=== PATIENT | male | born 1965 | race Caucasian/White ===

== ENCOUNTER 2020-06-02 17:27 | Outpatient (CLI) | payer BC, SELFPAY | END 2020-06-02 17:28 | disposition home or self-care (01) | LOC: ANHCOVIDVC 17:27 | PROVIDERS: PCP Family Medicine | DX: Z23 Encounter for immunization (principal) | CPT/HCPCS: 0001A; 91300 ==

== ENCOUNTER 2020-06-23 17:44 | Outpatient (CLI) | payer BC, SELFPAY | END 2020-06-23 17:45 | disposition home or self-care (01) | LOC: ANHCOVIDVC 17:44 | PROVIDERS: PCP Family Medicine | DX: Z23 Encounter for immunization (principal) | CPT/HCPCS: 0002A; 91300 ==

== ENCOUNTER 2021-06-15 14:38 | Outpatient (CLI) | payer BC, SELFPAY ==
--- NOTE | ~2021-06-15 | PE_ITS ---
EXAMINATION: PET_PETPSMAST_PT DATE: 06/15/2021 17:03 INDICATION: Malignant neoplasm of the prostate TECHNIQUE: 10.51 mCi of pipflufolastat F-18 (18-F-DCFPyL) was administered i.v. Low dose computed silva ography (CT) images were acquired from the base of the brain to the proximal thighs for attenuation c orrection and anatomic localization. Positron emission tomography (PET) images were acquired in the s rosie distribution beginning 86 minutes after injection. COMPARISON: None FINDINGS: Head/neck: Typical pattern of symmetric physiologic increased activity in the lacrimal, parotid and s ubmandibular glands as well as along the mucosa of the oropharynx and nasopharynx. No pathologically enlarged cervical lymphadenopathy or suspicious foci of increased uptake in the visualized head or ne ck. Chest: Mild emphysema. Linear band of discoid atelectasis/scarring in the left lower lobe. Calcified left lo wer lobe nodule along with calcified left hilar lymph nodes consistent with old granulomatous disease . No other suspicious pulmonary nodules, pneumonia or pleural effusion. Heart size is normal. No jurgen cardial effusion. No pathologically enlarged thoracic or PSMA avid lymphadenopathy. Abdomen/pelvis/proximal thighs: Physiologic renal accumulation and excretion of activity in the kidneys, bladder and along portions o f ureters. Normal degree and slightly heterogenous pattern of increased uptake throughout the liver a nd spleen without radiologic correlate or dominant PSMA avid lesion. The gallbladder, pancreas and bi lateral adrenal glands are normal. Moderate uptake scattered throughout the bowels with typical duode nal and proximal jejunal predominance and without radiologic correlate, also likely physiologic. No o ther abnormal foci of increased uptake or pathologically enlarged lymphadenopathy in the abdomen, pel vis or proximal thighs. Musculoskeletal: 1.5 cm peripherally sclerotic lesion at the left sacral ala with negligible activity with maximal SUV of 1.1 which is below the level of the blood pool seen at the vessels at the bilateral inguinal jamie ons where the maximal SUV is 1.4. Suture anchor tracts at the right humeral head likely related to pr ior rotator cuff repair. No other suspicious bone lesions identified. Specifically no abnormal activi ty or suspicious lytic or blastic bone lesions at the left acromion. IMPRESSION: 1. No evident metastatic disease. Specifically no abnormally increased activity at an indeterminate p eripherally sclerotic lesion at the left sacral ala. Reviewed, dictated and finalized at location B. IMPRESSION: 1. No evident metastatic disease. Specifically no abnormally increased activity at an indeterminate peripherally sclerotic lesion at the left sacral ala.
== END 2021-06-15 14:39 | disposition home or self-care (01) ==
PROVIDERS: PCP Family Medicine; Visit Provider Radiology Radiation Oncology
DX: Z03.89 Encounter for observation for other suspected diseases and conditions ruled out (principal); C61 Malignant neoplasm of prostate
CPT/HCPCS: 78815; A9595

== ENCOUNTER 2021-09-03 10:42 | Outpatient (CLI) | payer BC, SELFPAY ==
--- NOTE | ~2021-09-03 | MR_ITS ---
EXAMINATION: MR pelvis wo/w con DATE: 09/03/2021 12:20 INDICATION: Prostate cancer. TECHNIQUE: Magnetic resonance imaging (MRI) of the pelvis was performed without and with 19 mL MultiH ance intravenous contrast. COMPARISON: PET CT 06/15/2021 FINDINGS: There is diverticulosis of the colon without evidence of diverticulitis. The prostate is mildly enlar ged. There is a 3.8 x 1.3 cm fluid collection between the rectum and prostate, likely hematoma. There are no pathologically enlarged lymph nodes. IMPRESSION: 1. Mildly enlarged prostate. No evidence of metastatic disease. Reviewed, dictated and finalized at location A.
[2021-09-03 11:11] LABS: Estimated Glomerular Filt Rate > 60
== END 2021-09-03 10:43 | disposition home or self-care (01) ==
PROVIDERS: PCP Family Medicine; Visit Provider Radiology Radiation Oncology
DX: C61 Malignant neoplasm of prostate (principal); N40.0 Benign prostatic hyperplasia without lower urinary tract symptoms
CPT/HCPCS: 72197; A9577

== ENCOUNTER 2021-09-28 12:52 | Outpatient (CLI) | payer BC, SELFPAY ==
--- NOTE | ~2021-09-28 | DEXA_ITS ---
Bone Density Report Name: JOE GARCIA Age: 56 Sex: Male Ethnicity: White Date of : 1965 Indication: cancer; secondary osteoporosis; Referring Provider: RACHELL RODRIGUEZ Study: Bone densitometry was performed. Exam Date: September 28, 2021 Accession number: [id number] Bone Density: Region BMD T-score Z-score Classification AP Spine(L1-L4) 1.008 -0.8 -0.2 Normal Femoral Neck (Left) 0.764 -1.2 -0.3 Osteopenia Total Hip (Left) 0.935 -0.6 -0.2 Normal Femoral Neck (Right) 0.777 -1.1 -0.2 Osteopenia Total Hip (Right) 0.957 -0.5 -0.1 Normal Total Hip Mean 0.946 -0.6 -0.2 Normal World Health Organization criteria for BMD impression classify patients as: Normal (T-score at or above -1.0), Osteopenia (T-score between -1.0 and -2.5), or Osteoporosis (T-score at or below -2.5). 10-year Fracture Risk(1): Major Osteoporotic Fracture 5.1% Hip Fracture 0.4% Reported Risk Factors: [place] (), Neck BMD=0.764, BMI=28.7, secondary osteoporosis (1) FRAX(R) Version 3.08. Fracture probability calculated for an untreated patient. Fracture probability may be lower if the patient has received treatment. Clinical Information Provided by Patient: Has secondary osteoporosis Has used the following medications: Vitamin D, Calcium Has the following medical conditions: Cancer, prostate Patient maximum height was 71 No regular weight bearing exercise Impression: The patient has low bone mass, based on the Left Femoral Neck T-score. The patient has an estimated ten-year risk of hip fracture of 0.4% and an estimated ten-year risk of major fracture of 5.1%, based on the WHO FRAX algorithm. Discussion: BONE DENSITY IS LOW AT ONE OR MORE SKELETAL SITES. This patient's lowest T-score is low at one or more skeletal sites. It meets the World Health Organization's (WHO) criteria for ?low bone mass? (T-score between -1.0 and -2.5). The patient's 10-year risk of fracture as calculated by FRAX is less than the threshold where pharmacological therapy is recommended by the National Osteoporosis Foundation (NOF). However, all treatment decisions require clinical judgment and consideration of individual patient factors, including patient preferences, comorbidities, previous drug use, risk factors not captured in the FRAX model (e.g., frailty, falls, vitamin D deficiency, increased bone turnover, interval significant decline in bone density) and possible under or overestimation of fracture risk by FRAX. The patient should follow a healthful lifestyle (good nutrition with adequate calcium and vitamin D, and appropriate weight-bearing exercise). Follow-Up: Consider repeating this study in 2 to 3 years to reassess this patient's status, or sooner if there is some new clinical indication. Reported by: [facility] on
== END 2021-09-28 12:53 | disposition home or self-care (01) ==
PROVIDERS: PCP Family Medicine; Visit Provider Nurse Practitioner
DX: M81.8 Other osteoporosis without current pathological fracture (principal); M85.852 Other specified disorders of bone density and structure, left thigh; M85.851 Other specified disorders of bone density and structure, right thigh
CPT/HCPCS: 77080

== ENCOUNTER 2022-08-16 08:32 | Outpatient (CLI) | payer BC, SELFPAY ==
--- NOTE | ~2022-08-16 | NM_ITS ---
EXAMINATION: NM bone scan whole body DATE: 08/16/2022 13:05 INDICATION: Prostate cancer TECHNIQUE: 24.2 mCi Tc-99m HDP was administered intravenously. Delayed whole-body scintigrams were o btained. COMPARISON: CT abdomen pelvis dated FINDINGS: Likely degenerative joint centered uptake at the right acromioclavicular joint and multiple joints at the bilateral hands and wrists. Significantly more intense focus projecting over the tips of the fin gers of the left hand were likely related to skin contamination as is a tiny relatively intense focus projecting over the soft tissues at the left antecubital fossa. No bone lesions suspicious for metas tatic disease. IMPRESSION: 1. No lesion suspicious for metastatic disease. Reviewed, dictated and finalized at location A.
--- NOTE | ~2022-08-16 | CT_ITS ---
EXAMINATION: CT abdomen pelvis w con INDICATION: Prostate cancer TECHNIQUE: Computed tomographic images of the abdomen and pelvis were obtained after the administrati on of 100 cc of Omnipaque 350 intravenous contrast. The dose-length product (DLP) was 1140.18 mGy-cm. Automated exposure control and iterative reconstruction technique were employed. COMPARISON: 06/15/2021; MRI, 09/03/2021 FINDINGS: The lung bases are clear. The heart size is normal. Punctate calcifications in an otherwise normal spleen likely represent healed granulomatous disease. The liver, pancreas, gallbladder, and a drenal glands are normal. The kidneys are unremarkable. No pathologically enlarged abdominal or pelvi c lymph nodes are identified. Colonic diverticulosis is present without evidence of diverticulitis. N o free intraperitoneal gas or evidence of bowel obstruction. The appendix is normal. Again seen is a stable, chronic peripherally sclerotic lesion of the left sacroiliac which did not demonstrate abnorm al uptake on prior PET/CT. IMPRESSION: 1. No evidence of metastatic disease. Reviewed, dictated and finalized at location L.
[2022-08-16 09:22] LABS: Estimated Glomerular Filt Rate > 60
== END 2022-08-16 08:33 | disposition home or self-care (01) ==
PROVIDERS: PCP Family Medicine; Referring Provider Radiology Radiation Oncology; Visit Provider Urology
DX: C61 Malignant neoplasm of prostate (principal)
CPT/HCPCS: 74177; 78306; A9503; Q9967

== ENCOUNTER 2023-09-06 08:42 | Outpatient (CLI) | payer BC, SELFPAY ==
--- NOTE | ~2023-09-06 | CT_ITS ---
CT of the Abdomen and Pelvis: Indication: Prostate cancer Technique: 2.5 mm axial scans were obtained through the abdomen and pelvis following intravenous adm inistration of 100 cc of Omnipaque 350. Dose reduction technique was used on this scan by utilizing a utomated exposure control and iterative reconstruction technique. The dose-length product (DLP) was 1 031.47 mGy-cm. COMPARISON: 08/16/2022 Findings: Scans through the lung bases are unremarkable. Stable 9 mm enhancing lesion in the left hepatic lobe, possibly flash filling hemangioma. The spleen, pancreas, gallbladder, adrenals and kidneys are within normal limits. No evidence of aortic aneurys m. No lymphadenopathy. No bowel obstruction or bowel wall thickening. There is no evidence to suggest acute appendicitis. Images through the pelvis were performed. Urinary bladder unremarkable. No pelvic mass seen. Prostate gland fiducial markers are present. Stable sclerotic lesion in the left sacrum. Impression: Stable sclerotic lesion left sacrum. No other significant abnormality seen. Reviewed, dictated and finalized at location . Impression: Stable sclerotic lesion left sacrum. No other significant abnormality seen.
--- NOTE | ~2023-09-06 | NM_ITS ---
EXAMINATION: NM bone scan whole body DATE: 09/06/2023 12:06 INDICATION: Prostate cancer TECHNIQUE: 23.6 mCi Tc-99m HDP was administered intravenously. Delayed whole-body scintigrams were o btained. COMPARISON: Bone scan dated and CT abdomen and pelvis dated 09/06/2023 FINDINGS: Similar pattern of likely degenerative joint centered uptake at the right acromioclavicular joint and at the bilateral hands and wrists no other suspicious foci of abnormal bone uptake to suggest osseou s metastatic disease. Specifically no abnormal uptake associated with the sclerotic lesion seen at th e left sacral ala. IMPRESSION: 1. No lesion suspicious for metastatic disease. Reviewed, dictated and finalized at location A.
[2023-09-06 09:42] LABS: Estimated Glomerular Filt Rate > 60
== END 2023-09-06 08:43 | disposition home or self-care (01) ==
PROVIDERS: PCP Family Medicine; Visit Provider Urology
DX: C61 Malignant neoplasm of prostate (principal); M81.0 Age-related osteoporosis without current pathological fracture
CPT/HCPCS: 74177; 78306; A9503; Q9967

== ENCOUNTER 2023-09-11 09:38 | Outpatient (CLI) | payer BC, SELFPAY ==
--- NOTE | ~2023-09-11 | DEXA_ITS ---
Bone Density Report Name: JOE GARCIA Age: 58 Sex: Male Ethnicity: White Date of : 1965 Indication: height loss; history of glucocorticoids; cancer; Referring Provider: POPPY SANDERS Study: Bone densitometry was performed. Exam Date: September 11, 2023 Accession number: [id number] Bone Density: Region BMD T-score Z-score Classification AP Spine(L1-L4) 1.054 -0.3 0.3 Normal Femoral Neck (Left) 0.773 -1.2 -0.2 Osteopenia Total Hip (Left) 1.052 0.1 0.6 Normal Femoral Neck (Right) 0.813 -0.9 0.1 Normal Total Hip (Right) 1.054 0.1 0.6 Normal Total Hip Mean 1.053 0.1 0.6 Normal World Health Organization criteria for BMD impression classify patients as: Normal (T-score at or above -1.0), Osteopenia (T-score between -1.0 and -2.5), or Osteoporosis (T-score at or below -2.5). 10-year Fracture Risk(1): Major Osteoporotic Fracture 7.7% Hip Fracture 1.2% Reported Risk Factors: [place] (), Neck BMD=0.773, BMI=31.0, smoking, glucocorticoids (1) FRAX(R) Version 3.08. Fracture probability calculated for an untreated patient. Fracture probability may be lower if the patient has received treatment. Clinical Information Provided by Patient: Smokes Has taken Glucocorticoids Has used the following medications: Vitamin D, Calcium Has the following medical conditions: Cancer Patient maximum height was 71 No regular weight bearing exercise Drinks caffeinated beverages Impression: The patient has low bone mass, based on the Left Femoral Neck T-score. The patient has an estimated ten-year risk of hip fracture of 1.2% and an estimated ten-year risk of major fracture of 7.7%, based on the WHO FRAX algorithm. The patient has risk factors, including: smoking, history of glucocorticoid therapy. Discussion: BONE DENSITY IS LOW AT ONE OR MORE SKELETAL SITES. This patient's lowest T-score is low at one or more skeletal sites. It meets the World Health Organization's (WHO) criteria for ?low bone mass? (T-score between -1.0 and -2.5). The patient's 10-year risk of fracture as calculated by FRAX is less than the threshold where pharmacological therapy is recommended by the National Osteoporosis Foundation (NOF). However, all treatment decisions require clinical judgment and consideration of individual patient factors, including patient preferences, comorbidities, previous drug use, risk factors not captured in the FRAX model (e.g., frailty, falls, vitamin D deficiency, increased bone turnover, interval significant decline in bone density) and possible under or overestimation of fracture risk by FRAX. The patient should follow a healthful lifestyle (good nutrition with adequate calcium and vitamin D, and appropriate weight-bearing exercise). Follow-Up: Consider repeating this study in 2 to 3
== END 2023-09-11 09:39 | disposition home or self-care (01) ==
LOC: ANHIMG 09:39
PROVIDERS: PCP Family Medicine; Visit Provider Urology
DX: M81.0 Age-related osteoporosis without current pathological fracture (principal); M85.89 Other specified disorders of bone density and structure, multiple sites; C61 Malignant neoplasm of prostate
CPT/HCPCS: 77080

== ENCOUNTER 2024-01-15 14:37 | Emergency (ER) | payer BC, SELFPAY ==
--- NOTE | ~2024-01-15 | XR_ITS ---
EXAM: XR toe 1st RT min 2V DATE: 01/15/2024 19:05 HISTORY: post-reduction . COMPARISON: Same date at 2:51 PM. FINDINGS/IMPRESSION: Interval reduction of the first digit interphalangeal dislocation into near-heriberto omic alignment. Anteromedial corner fracture of the right first distal phalanx, with 3 mm distraction . Reviewed, dictated and finalized at location K. 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
--- NOTE | ~2024-01-15 | XR_ITS ---
EXAM: XR foot RT min 3V DATE: 01/15/2024 14:58 HISTORY: fall, RIGHT FOOT 1ST TOE, DEFORMITY, UNABLE TO STRAIGHT OUT . COMPARISON: None available. FINDINGS: Normal mineralization. Anterior dislocation of the first distal phalanx by one bone width. Cortical irregularity along the lateral aspect of the first interphalangeal joint with the suggestio n of a small ossific fragment, likely indicating fracture. No lytic or blastic lesion. Mild scattered degenerative changes. Mild Achilles and plantar enthesopathy spaces are maintained. No erosion or pe riosteal change. Soft tissues within normal limits. IMPRESSION: Anterior dislocation of the first distal phalanx. Suspected small chip or avulsion type f racture at the first interphalangeal joint. Reviewed, dictated and finalized at location K. CACY DIRECTOR IMPRESSION: Anterior dislocation of the first distal phalanx. Suspected small c hip or avulsion type fracture at the first interphalangeal joint.
[2024-01-15 15:53] VITALS: BP 159/76; PULSE 48; RESP 17; TEMP 36.5; O2SAT 99
--- NOTE | 2024-01-15 18:47 | ED_ITS ---
HPI - Extremity Injury (Lower) General Chief Complaint: Extremity Injury, Lower Stated Complaint: right foot Time Seen by Provider: 01/15/24 17:18 Source: patient Mode of arrival: wheelchair Limitations: no limitations History of Present Illness HPI Narrative: This is a 58 year old male that presents to the ER after a fall today with right great toe injury. He did not hit his head or lose consciousness. Slipped walking on the laminate abimbola at home. Reports pain and decreased ROM in the right great toe. Denies numbness. Related Data Home Medications Medication Instructions Recorded Confirmed ascorbic acid (vitamin C) 1,000 mg 1 gm PO DAILY 12/31/18 11/27/23 tablet cyanocobalamin (vitamin B-12) 1,000 mcg PO DAILY 12/31/18 11/27/23 1,000 mcg tablet,extended release (Vitamin B-12 ER) fish oil-dha-epa 1,200 mg-144 1 cap PO DAILY 12/31/18 11/27/23 mg-216 mg capsule apalutamide 60 mg tablet (Erleada) 240 mg PO DAILY 04/27/23 11/27/23 denosumab 120 mg/1.7 mL (70 mg/mL) 120 mg subcut ONCE 04/27/23 11/27/23 subcutaneous solution (Xgeva) fluticasone propionate 50 1 spray intranasal BID 04/27/23 11/27/23 mcg/actuation nasal spray,suspension (Flonase Allergy Relief) leuprolide acetate (6 month) 45 mg 45 mg subcut [id number] 04/27/23 11/27/23 (6 month) subcutaneous syringe (Eligard) Allergies Allergy/AdvReac Type Severity Reaction Status Date / Time No Known Allergies Allergy Verified 06/09/23 14:04 Review of Systems Review of Systems: CONSTITUTIONAL: Denies fever MUSCULOSKELETAL: Reports joint pain, and myalgia. NEUROLOGIC: Denies numbness All systems reviewed & are unremarkable except as noted in HPI and below PMFSH Past Medical History Medical History (Updated 01/15/24 @ 20:06 by Avelina George PA-C) Abnormal fasting glucose Fasting glucose 108 with hemoglobin A1c 5.6 on 11/24/2023 with GFR 99. Acute non-recurrent maxillary sinusitis BMI 30.0-30.9,adult COVID-19 (~02/21/23) Elevated PSA, less than 10 ng/ml (06/02/20) PSA 7.6 on 06/02/2020, increased from 3.7 on 09/17/2018. PSA 9.3 with 10% free PSA on 09/07/2020 Encounter for prostate cancer screening Mixed hyperlipidemia Total cholesterol 262, triglycerides 476, HDL 32 on 06/02/2020. cholesterol 270, triglycerides 327, HDL 36, LDL 179 with ratio 7.5 on 11/24/2023. Obesity (BMI 30.0-34.9) Plantar wart of right foot Polyp of colon Colonoscopy 08/25/2017 Prostate cancer, primary, with metastasis from prostate to other site (~02/2021) No evidence of metastatic disease a nuclear bone scan and CT of the abdomen and pelvis on 08/16/2022. Negative Bone scan 09/06/23. Stable sclerotic lesion left sacrum on CT 09/06/2023. Family History Family History Mother Diabetes mellitus Family history of arthritis Grandparent Depression Family history of suicide Family history of dementia Father Patient's father is Family history of malignant neoplasm Sibling Family history of allergic disorder Social History Social History Smoking packs per day: 2 Smoking cigarettes per day: 40.0 Years smoked: 25 Smoking pack-years: 50.00 Smoking status: Former smoker Alcohol intake: former Substance use: never Substance use type: does not use Current Housing: Decline to Answer Concerned About Future Housing: Decline to Answer Difficulty Paying Gas/Electric Bills: Decline to Answer Difficulty Paying for Meds: Decline to Answer Currently Unemployed: Decline to Answer Education: Decline to Answer Difficulty w/ Childcare or Family Care: Decline to Answer Spiritual care concerns: No Exam Narrative: GENERAL: Well-appearing, well-nourished, and in no acute distress. HEAD: Normocephalic, atraumatic. EYES: EOMI. EXTREMITIES: Normal range of motion, except decreased active ROM SKIN: Warm, dry, no rash. NEURO: No focal deficits. Alert and oriented x3. PSYCH: Normal mood and affect Course Course Emergency Course: Patient agrees with plan of care Vital Signs Vital signs: Vital Signs Temperature 97.7 F 01/15/24 15:53 Pulse Rate 48 L 01/15/24 15:53 Respiratory Rate 17 01/15/24 15:53 Blood Pressure 159/76 H 01/15/24 15:53 Pulse Oximetry 99 01/15/24 15:53 Temperature 97.7 F 01/15/24 15:53 Pulse Rate 48 L 01/15/24 15:53 Respiratory Rate 17 01/15/24 15:53 Blood Pressure 159/76 H 01/15/24 15:53 Pulse Oximetry 99 01/15/24 15:53 Procedures Orthopedic Joint Reduction Joint #1: Orthopedic Joint Reduction Date: 01/15/24 Orthopedic Joint Reduction Time: 20:13 Side: right Joint Reduction Location: toe Analgesia: other (digital block) Pre-Procedure Neuro Vascular Exam: normal Local Anesthesia: lidocaine 1% Amount of anesthesic used (mL): 3 Technique used: direct manipulation Post-reduction neuro exam: intact Post-reduction vascular: intact Post Reduction X-Ray Obtained: Yes Post Reduction X-Ray Results: reduced Splint Applied: Yes Patient Tolerated Procedure: well and no complications MDM - Extremity Injury (Lower) MDM Narrative Medical decision making narrative: Patient presents to the emergency department for a toe dislocation. This was successfully reduced. Postreduction x-ray showing anatomic alignment. Patient kevin taped and placed in postop shoe and given crutches. Will be given follow- up with Orthopedics. He was given warnings to return to the ER Differential Diagnosis Differential diagnosis: Likely fracture of toe and other (toe dislocation) Imaging Data Radiologist's impression: ITS Impressions Foot X-Ray 01/15/24 15:02 IMPRESSION: Anterior dislocation of the first distal phalanx. Suspected small chip or avulsion type fracture at the first interphalangeal joint. Critical Care Time Critical Care Time Critical Care Time: No Discharge Plan Discharge Clinical Impression: Closed dislocation of toe of right foot Qualifiers: Encounter type: initial encounter Qualified Code(s): S93.104A - Unspecified dislocation of right toe(s), initial encounter Patient Disposition: Home, Self-Care Condition: Stable Instructions: Closed Reduction (ED) Additional Instructions: Return to the ER if you experience fever, redness and swelling of your extremity, numbness or any other symptoms that are concerning to you Wear post op shoe and kevin tape and use crutches. No weight on the affected leg. Ice and elevate extremity. Pain medication as needed and directed. Follow up with orthopedics for further care. Prescriptions: New hydrocodone-acetaminophen 5-325 mg tablet 1 tablet PO Q6H PRN (Reason: pain) Qty: 14 0RF No Action fluticasone propionate [Flonase Allergy Relief] 50 mcg/actuation spray,suspension 1 spray intranasal BID Rx Instructions: administer into each nostril Erleada 60 mg tablet 240 mg PO DAILY Patient Comments: prescribed by Oncology or urologist Anel (6 month) 45 mg syringe 45 mg subcut [id number] Xgeva 120 mg/1.7 mL (70 mg/mL) solution 120 mg subcut ONCE Patient Comments: oncology diazepam 10 mg tablet 10 mg PO BID PRN (Reason: anxiety) Qty: 180 1RF fish oil-dha-epa 1,200-144-216 mg capsule 1 cap PO DAILY ascorbic acid (vitamin C) 1,000 mg tablet 1 gm PO DAILY cyanocobalamin (vitamin B-12) [Vitamin B-12] 1,000 mcg tablet extended release 1,000 mcg PO DAILY fluoxetine 60 mg tablet 60 mg PO DAILY Qty: 90 3RF zolpidem 10 mg tablet 10 mg PO . Q.h.s. PRN (Reason: insomnia) Qty: 90 1RF quetiapine 25 mg tablet 25 mg PO QHS Qty: 90 3RF Follow-up/Referrals: Len Singleton MD [Primary Care Provider] - Jose Elias Tobias MD [Physician] -
[2024-01-15] MEDS: HYDROcodone/acetaminophen (*CRX) 5-325 MG TABLET 1 TAB PO (19:08)
[2024-01-15 20:16] VITALS: BP 145/81; PULSE 61; RESP 12; TEMP 36.3; O2SAT 99
== END 2024-01-15 20:18 | disposition home or self-care (01) ==
PROVIDERS: Emergency Provider Physician Assistant; PCP Family Medicine
DX: S93.104A Unspecified dislocation of right toe(s), initial encounter (principal); E78.5 Hyperlipidemia, unspecified; Z85.46 Personal history of malignant neoplasm of prostate; W01.0XXA Fall on same level from slipping, tripping and stumbling without subsequent striking against object, initial encounter
CPT/HCPCS: 28660; 73630; 73660; 99285; A9270

== ENCOUNTER 2024-10-04 08:03 | Outpatient (CLI) | payer OTHER, SELFPAY ==
--- NOTE | ~2024-10-04 | NM_ITS ---
EXAMINATION: NM bone scan whole body DATE: 10/04/2024 13:01 INDICATION: Prostate cancer TECHNIQUE: 25.0 mCi Tc-99m HDP was administered intravenously. Delayed whole-body scintigrams were o btained. COMPARISON: Bone scan dated 09/06/[address] dated 10/07/2024 and [facility] PET dated 06/15/2021 FINDINGS: Persistent typical pattern of likely degenerative joint centered uptake bilaterally at the radial asp ect of the carpi, the acromioclavicular and sternoclavicular joints. Additional likely degenerative u ptake at the sternomanubrial articulation and along multiple facet and costovertebral articulations a t the lower cervical, mid thoracic and lower lumbar spine. Symmetric mild likely enthesopathic uptake at the bilateral anterior tibial tuberosities. No abnormal uptake identified at the left sacral ala in the region of the chronic sclerotic lesion seen on CT studies dated back to 06/15/2021. No new foci of abnormal bone uptake to suggest metastatic disease. IMPRESSION: 1. No lesion suspicious for metastatic disease. Reviewed, dictated and finalized at location A.
--- NOTE | ~2024-10-04 | CT_ITS ---
CT of the Abdomen and Pelvis: Indication: Prostate cancer Technique: 2.5 mm axial scans were obtained through the abdomen and pelvis following intravenous adm inistration of 100 cc of Omnipaque 350. Dose reduction technique was used on this scan by utilizing a utomated exposure control and iterative reconstruction technique. The dose-length product (DLP) was 7 92.10 mGy-cm. COMPARISON: 09/06/2023 Findings: Scans through the lung bases are unremarkable. There is diffuse hepatic steatosis. The spleen, pancreas, gallbladder, adrenals and kidneys are withi n normal limits. There are atherosclerotic calcifications of the aorta. No lymphadenopathy. No bowel obstruction or bowel wall thickening. There is no evidence to suggest acute appendicitis. Images through the pelvis were performed. Urinary bladder unremarkable. No pelvic mass evident. No as cites. Stable sclerotic lesion in the left sacrum. Impression: Stable sclerotic lesion in the left sacrum. Diffuse hepatic steatosis. Reviewed, dictated and finalized at location . Impression: Stable sclerotic lesion in the left sacrum. Diffuse hepatic steatosis.
--- OUTSIDE RECORDS SUMMARY | 2024-10-04 08:08 | XMS_ITS | Clinical Summary ---
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 255 g 7 Active Social History Tobacco Use Types Packs/Day Years Used Date Smoking Tobacco: Never Assessed Sex and Gender Information Value Date Recorded Sex Assigned at Not on file Legal Sex Male 4:12 PM CDT Gender Identity Not on file Sexual Orientation Not on file Plan of Treatment Health Maintenance Due Date Last Done Comments Hepatitis C Virus (HCV) Screening 1965 TdaP Immunization 1963 Cologuard 2008 Colonoscopy 2008 Colorectal Cancer Screening 2008 Immunochemical Fecal Occult Blood 2008 Pneumococcal Immunization (5 0+ years) (1 of 1 - PCV) 2013 Zoster Immunization (1 of 2) 2013 SARS-COV-2 Immunization (1 - 2023-25 season) 2023 Influenza Immunization (#1) 2024 Respiratory Syncytial Virus (RSV) Immunization (Adult) (1 - 1-dose 75+ series) 2038 Hepatitis B Immunization Aged Out No longer eligible based on patient's age to complete this topic Human Papillomavirus (HPV) Immunization Aged Out No longer eligible b ased on patient's age to complete this topic Meningococcal Immunization (ACWY) Aged Out No longer eligible based on patient's age to complete this topic Rotavirus Immunization Aged Out No lo nger eligible based on patient's age to complete this topic Insurance Care Teams Rock Crushing Machine Operator Relationship Specialty Start Date End Date Len Singleton MD [address] [address] PCP - General Family Medicine 01/31/17
--- OUTSIDE RECORDS SUMMARY | 2024-10-04 08:08 | XMS_ITS | Clinical Summary ---
Author Organization [facility] Address [facility] [place] [address] Care Team Providers Care Cleaner Window Name Role Phone Hannah Singleton MD Primary Care Provider [phone] Omayra Caraballo MD Unavailable Allergies No known active allergies Medications FLUoxetine 40 MG capsule Take 40 mg by mouth daily. Active Calcium Carbonate Antacid 600 MG Chew Tab Chew 2 tablets by mouth daily. Active apalutamide 60 MG tablet Take 4 tablets by mouth daily. 04/28/2021 Active fish oil 1000 MG Cap capsule Take 1 capsule by mouth daily. Active Flaxseed Oil (LINSEED OIL) Oil 1 tablet by Other route daily. Active diazePAM 10 MG tablet Take 1 tablet by mouth 2 (two) times daily as needed. 06/08/2021 Active zolpidem 10 MG tablet Take 1 tablet by mouth daily. 06/08/2021 Active QUEtiapine 25 MG tablet Take 25 mg by mouth nightly at bedtime. at bedtime. 12/10/2020 Active Active Problems Problem Noted Date Diagnosed Date Adenocarcinoma of prostate ([facility]) Encounters Date Type Department Care Team Description 08/30/2024 12:51 PM CDT - 08/30/2024 11:59 PM CDT Hospital Encounter [facility] [address] [address] Hannah Singleton MD Discharge Disposition: Home or Self Care (Routine Discharge) 08/30/2024 Travel from Last 3 Months Immunizations Immunization Administration Dates Next Due Influenza Adult (Generic) 02/10/2021 MODERNA COVID-19 (12+) MRNA, LNP-S, PF, 100 MCG/ 0.5 ML DOSE 02/10/2021 Family History Medical History Relation Comments Kidney Disease Father Diabetes Mother Heart Disease Mother Obesity Mother Relation Status Comments Father Mother Social History Tobacco Use Types Packs/Day Years Used Date Smoking Tobacco: Former Cigarettes 2 30 1 970 - 2000 Smokeless Tobacco: Never Alcohol Use Standard Drinks/Week Comments Yes 0 (1 standard drink = 0.6 oz pur e alcohol) rare 1 every few months Sex and Gender Information Value Date Recorded Sex Assigned at Male 08/30/2024 12:47 PM CDT Legal Sex Male 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 Gender Identity Male 03/30/2021 9:02 AM SOLUTION DESIGN ENGINEER Sexual Orientation Straight 03/30/2021 9: 02 AM SOLUTION DESIGN ENGINEER Last Filed Vital Signs Vital Sign Reading Time Taken Comments Blood Pressure 127/85 08/09/2021 10:00 AM CDT Pulse 52 08/09/2021 10:00 AM CDT Temperature 36.3 C (97.4 F) 08/09/2021 10:00 AM CDT Respiratory Rate 16 08/09/2021 10:00 AM CDT Oxygen Saturation 99% 08/09/2021 10:00 AM CDT Inhaled Oxygen Concentration - - Weight 88.2 kg (194 lb 7.1 oz) 08/09/2021 7:30 A M CDT Height 180.3 cm (5' 11) 08/09/2021 7:30 AM CDT Body Mass Index 27.12 08/09/2021 7:30 AM CDT Plan of Treatment Health Maintenance Due Date Last Done Comments Colorectal Cancer Screening Colonoscopy (10 Years) 1963 Annual Physical 1966 Hepatitis C 1981 DTaP, Tdap and Td Vaccines ( 1 - Tdap) 1982 Pneumococcal Vaccine: 50+ Years (1 of 1 - PCV) 2013 Zoster Vaccines (1 of 2) 2013 COVID-19 Vaccine (4 - 2023-2 5 season) 2023 02/10/2021, 06/23/2020, 06/02/2020 RSV Immunization or 60+ Years (1 - 1-dose 75+ series) 2038 Meningococcal B Vaccine Aged Out No l onger eligible based on patient's age to complete this topic Meningococcal Vaccine Aged Out No whitney sissy eligible based on patient's age to complete this topic RSV Immunizations Under 20 Months Aged Out No longer eligible b ased on patient's age to complete this topic Medical Devices Implanted Type Area Jack Spinner Device Identifier Shelf Expiration Date Model / Serial / Lot Absorbable Radiopaque Perirectal Hydrogel Spacer Implanted:Qty: 1 on 08/09/2021 by Fred Cali MD at [facility] N/A: Perianal [id number] 12/17/2022 / / [id number] Procedures Procedure Name Priority Date/Time Associated Diagnosis Comments CT HEART SCREEN CALCIUM SCORE PROMO Routine 08/30/2024 1:11 PM CDT Mixed hyperlipidemia from Last 3 Months Results * CT HEART SCREEN CALCIUM SCORE PROMO (08/30/2024 1:11 PM CDT) Anatomical Region Laterality Modality Chest Computed Tomogra phy 08/30/2024 1:23 PM CDT Impressions 08/30/2024 1:23 PM CDT =====IMPRESSION:===== Total Score: 95.5 Mild plaque, moderate risk, low likelihood of significant stenosis (<50%). Ordered By: HANNAH SINGLETON Interpreted By: Epi Magallanes MD, 08/30/2024 1:23 PM Narrative 08/30/2024 1:23 PM CDT [facility] [address] [place], [place] [address] EXAMINATION: Multislice Helical CT Coronary Calcium Scoring REASON FOR EXAM: Screening for heart disease COMPARISON: None TECHNIQUE: Multislice helical CT images of the proximal coronary arteries with a computer generated calcification score. A dose lowering technique was used for this procedure, which may include, but is not limited to, dose reduction technique, automated exposure control, iterative reconstruction, ALARA (As Low As Reasonably Achievable), or Image Gently techniques. Results: Left main: 0 LAD: 64.6 Circumflex: 0.5 Right coronary: 30.3 Total Score: 95.5 Comments: There is no mediastinal adenopathy, and there are no pulmonary nodules in the visualized portions of the chest. Calcium score guidelines: Total Score* Calcium Plaque [place] *Risk *Probability of significant CAD 0 No Plaque Very Low Very unlikely 1-10 Minimal Plaque Low Unlikely 11-100 Mild Plaque Moderate Low likelihood of significant stenosis <50% 101-400 Moderate Plaque Moderately High Moderate likelihood of significant stenosis (>50%) Over 400 Extensive Plaque High High likelihood of significant stenosis (>50%) The amount of coronary artery calcification correlates with the severity of coronary atherosclerosis and the probability of future significant event. Calcification is not site specific for stenosis and does not identify non-calcified atherosclerotic plaque, but rather indicates the extent of atherosclerosis in the coronary arteries overall. The score may be used as an indicator for risk factor modification or additional cardiac testing. Significant change in calcium score over time may be indicative of subsequent disease development or useful as a benchmark to assess preventative programs. Procedure Note Epi Magallanes MD - 08/30/2024 [place] [address] EXAMINATION: Multislice Helical CT Coronary Calcium Scoring REASON FOR EXAM: Screening for heart disease COMPARISON: None TECHNIQUE: Multislice helical CT images of the proximal coronary arterieswith a computer generated calcification score. A dose lowering techniquewas used for this procedure, which may include, but is not limited to,dose reduction technique, automated exposure control, iterativereconstruction, ALARA (As Low As Reasonably Achievable), or Image Gentlytechniques. Results: Left main: 0 LAD: 64.6 Circumflex: 0.5 Right coronary: 30.3 Total Score: 95.5 Comments: There is no mediastinal adenopathy, and there are no pulmonarynodules in the visualized portions of the chest. Calcium score guidelines: Total Score* Calcium Plaque [place] *Risk *Probability ofsignificant CAD 0 No Plaque Very LowVery unlikely 1-10 Minimal Plaque LowUnlikely 11-100 Mild Plaque ModerateLow likelihood of significant stenosis <50% 101-400 Moderate Plaque Moderately HighModerate likelihood of significant stenosis (>50%) Over 400 Extensive Plaque HighHigh likelihood of significant stenosis (>50%) The amount of coronary artery calcification correlates with the severityof coronary atherosclerosis and the probability of future significantevent. Calcification is not site specific for stenosis and does notidentify non-calcified atherosclerotic plaque, but rather indicates theextent of atherosclerosis in the coronary arteries overall. The score may be used as an indicator for risk factor modification oradditional cardiac testing. Significant change in calcium score over timemay be indicative of subsequent disease development or useful as abenchmark to assess preventative programs. =====IMPRESSION:===== Total Score: 95.5 Mild plaque, moderate risk, low likelihood ofsignificant stenosis (<50%). Ordered By: HANNAH SINGLETON Interpreted By: Epi Magallanes MD, 08/30/2024 1:23 PM us Hannah Singleton MD CT Final Resul t from Last [address] [place] [id number] Care Teams Cleaner Window Relationship Specialty Start Date End Date Hannah Singleton MD [address] [place] [address] [address] [place] [address] PCP - General FAMILY PRACTICE 08/04/21 [place] [id number] [address] [place] [address] RADIATION ONCOLOGY 08/04/21
--- OUTSIDE RECORDS SUMMARY | 2024-10-04 08:08 | XMS_ITS | Clinical Summary ---
Author Organization [facility] Address [address] [place] [address] Care Team Providers Care Financial Aids Officer Name Role Phone Len Singleton MD Primary Care Provider [phone] Allergies No known active allergies Medications Erleada 60 mg tablet 2 Active diazePAM (VALIUM) 10 mg tablet 1 2 Active polyethylene glycol (MIRALAX) 17 gram/dose powder Use entire 255g bottle with 64oz of clear liquid as directed for colonoscopy prep. 7 Active zolpidem (AMBIEN) 10 mg tablet 1 2 Active QUEtiapine (SEROquel) 25 mg tablet Take 25 mg by mouth nightly Active FLUoxetine (PROzac) 40 mg capsule Take 40 mg by mouth daily Active melatonin 10 mg tablet daily Active calcium acetate,phospha t bind, (PHOSLO) 667 mg capsule Take 1,334 mg by mouth 3 (three) times a day with meals Active omega-3 fatty acids 1,000 mg capsule Take by mouth Active flaxseed oiL oil Active fluticasone propionate (FLONASE) 50 mcg/actuation nasal spray Administer 1 spray into each nostril daily Active Active Problems Problem Noted Date Diagnosed Date Adenocarcinoma of prostate 05/14/2021 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 Bone metastasis 05/14/2021 Social History Tobacco Use Types Packs/Day Years Used Date Smoking Tobacco: Light Smoker Cigarettes Smokeless Tobacco: Never Personal Safety Answer Date Recorded Getting School Help Needed Not on file 04/22 Sex and Gender Information Value Date Recorded Sex Assigned at Not on file 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 Gender Identity Not on file Sexual Orientation Not on file Obstetrics History Last Filed Vital Signs Vital Sign Reading Time Taken Comments Blood Pressure 144/74 05/18/2021 1:07 PM CDT Pulse 63 05/18/2021 1:07 PM CDT Temperature 36.3 C (97.4 F) 05/18/2021 1:03 PM CDT Respiratory Rate 18 05/18/2021 1:03 PM CDT Oxygen Saturation 95% 05/18/2021 1:07 PM CDT Inhaled Oxygen Concentration - - Weight 88.3 kg (194 lb 9.6 oz) 05/18/2021 1:03 P M CDT Height 175.4 cm (5' 9.06) 05/18/2021 1:03 PM CD T Body Mass Index 28.69 05/18/2021 1:03 PM CDT Plan of Treatment Health Maintenance Due Date Last Done Comments Colon Cancer Screening-Colonoscopy 1963 Depression Screening 1963 Hepatitis C Screening 1963 Prostate Cancer Screening-PSA 1963 DTaP/Tdap/Td Vaccine (1 - Tdap) 1974 Hepatitis B Screening 1981 Regular Well Visit/Exam 18-64 1981 Pneumococcal vaccine <65 (1 of 2 - PCV) 1982 Zoster Vaccine (1 of 2) 1982 Covid-19 Vaccine (4 - season) 2023 02/10/2021, 06/23/2020, 06/02/2020 Influenza Vaccine (#1) 2024 02/10/2021, 2014 Insurance [employer] OOS Care Teams Financial Aids Officer Relationship Specialty Start Date End Date Len Singleton MD [address] [address] PCP - General Family Medicine 04/22/21
[2024-10-04 08:43] LABS: Estimated Glomerular Filt Rate > 60
== END 2024-10-04 08:04 | disposition home or self-care (01) ==
PROVIDERS: PCP Family Medicine; Visit Provider Urology
DX: C61 Malignant neoplasm of prostate (principal); K76.0 Fatty (change of) liver, not elsewhere classified
CPT/HCPCS: 74177; 78306; A9503; Q9967

== ENCOUNTER 2024-12-12 19:01 | Emergency (ER) | payer OTHER, SELFPAY ==
--- OUTSIDE RECORDS SUMMARY | 2018-06-14 10:00 | XMS_ITS | Continuity of Care Document ---
Author Organization [facility] Address [address] [place] [address] Phone Care Team Providers Care Grey Tender Name Role Phone Mirella PT, DPT, Ignacio Unavailable Unavailable Procedures Procedure Date PT Re-evaluation Therapeutic Exercise Therapeutic Exercise Therapeutic Activities Neuromuscular Re-Ed Manual Therapy Therapeutic Exercise Therapeutic Activities Neuromuscular Re-Ed Manual Therapy Therapeutic Exercise Therapeutic Activities Neuromuscular Re-Ed Manual Therapy Therapeutic Exercise Therapeutic Activities Neuromuscular Re-Ed Manual Therapy Therapeutic Exercise Therapeutic Activities Neuromuscular Re-Ed Manual Therapy Therapeutic Activities Manual Therapy PT Evaluation Moderate Complexity Therapeutic Exercise Advance Directives Directive Yes / No Effective Date File Name No Information Encounters Encounter Description Practice Location Reason(s) For Visit Diagnoses Date Provider Providers Copied on Encounter [facility], [address], [place], [place], [id number], [place] tel:[phone] [place] Pain in left shoulderWeakn essOther specified extrapyramida l and movement disorders Apr-2 5-201 9 Mirella Pierre. . Referring Provider: Micah Cano er, [address], [place], [address]. tel:[phone] [facility], [place], [place], [id number], [place] tel:[phone] [place] Pain in left shoulderWeakn essOther specified extrapyramida l and movement disorders Apr-1 6-201 9 Mirella Zamorake. . Referring Provider: Micah haji, [address], [place], [address]. tel:[phone] [facility], [place], [place], [id number], [place] tel:[phone] [place] Pain in left shoulderWeakn essOther specified extrapyramida l and movement disorders Apr-1 1-201 9 Doc Paredes , [place], [place]. Referring Provider: Micah haji, [address], [place], [address]. tel:[phone] [facility], [place], [place], [id number], [place] tel:[phone] [place] Pain in left shoulderWeakn essOther specified extrapyramida l and movement disorders Apr-0 4-201 9 Mirella Luke. . Referring Provider: Micah haji, [address], [place], [address]. tel:[phone] [facility], [place], [place], [id number], [place] tel:[phone] [place] Pain in left shoulderWeakn essOther specified extrapyramida l and movement disorders Apr-0 2-201 9 Mirella Zamorake. . Referring Provider: Micah haji, [address], [place], [address]. tel:[phone] [facility], [place], [place], [id number], [place] tel:[phone] [place] Pain in left shoulderWeakn essOther specified extrapyramida l and movement disorders 8 9 Mirella Pierre. . Referring Provider: Micah Cano er, [address], [place], [address]. tel:[phone] [facility], [address], [place], [place], [id number], tel:[phone] [place] Pain in left shoulderWeakn essOther specified extrapyramida l and movement disorders 6 9 Niederhoffer Kell. . Referring Provider: Micah Cano er, [address], [place], [address]. tel:[phone] [facility] [address], [place], [place], [id number], tel:[phone] [place] Pain in left shoulderWeakn essOther specified extrapyramida l and movement disorders 9 Niederhoffer Kell. . Referring Provider: Micah Cano er, [address], [place], [address]. tel:[phone] Family History Family Member Type Diagnosis Age At Onset No Information Payers Payer name Insurance type Covered constitution party ID Authorjeannettea nadiya(s) [facility] [id number] Social History Type Description Quantity Date Captured Comments Sex Male Smoking Status No Information Chief Complaint And Reason For Visit No Information Reason For Referral Reason For Referral No Information History Of Present Illness Encounter Date Complaint History Of Prese nt Illness No Information Functional Status Date Functional Assessmen t No Information Instructions Date Instruction Additional Infor mation No Information Assessments Type Assessment Date No Information Patient Care Teams Name Effective Dates (start - stop) Status Members No Information
--- OUTSIDE RECORDS SUMMARY | 2024-12-12 19:04 | XMS_ITS | Clinical Summary ---
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
--- OUTSIDE RECORDS SUMMARY | 2024-12-12 19:05 | XMS_ITS | Clinical Summary ---
Author Organization [facility] Address [address] [facility], [address] [address] Phone Care Team Providers Care Marketing Automation Manager Name Role Phone Len Singleton MD Primary [...] 2013 Zoster Immunization (1 of 2) 2013 Influenza Immunization (#1) 2024 SARS-COV-2 Immunization (1 - season) 2024 Respiratory Syncytial Virus (RSV) Immunization (Adult) [...] to complete this topic Insurance Care Teams Marketing Automation Manager Relationship Specialty Start Date End Date Len Singleton MD [address] [address] PCP - General Family Medicine 01/31/17
--- OUTSIDE RECORDS SUMMARY | 2024-12-12 19:05 | XMS_ITS | Clinical Summary ---
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 Sexual Orientation Straight 03/30/2021 9: 02 AM MIXER DIAMOND POWDER Last Filed Vital Signs Vital Sign Reading [...] 2013 Zoster Vaccines (1 of 2) 2013 RSV Immunization or 60+ Years (1 - Risk 60-74 years 1-dose series) 2023 PHQ-2 (Physician [place]) 02/21/2024 COVID-19 Vaccine (4 - 2024-2 6 season) 2024 02/10/2021, 06/23/2020, 06/02/2020 Influenza Adult (#1) 2024 02/10/2021, 11/20/2014 Hepatitis A Vaccines Aged Out No long er eligible based on patient's age to complete this topic Meningococcal B Vaccine Aged Out No l onger eligible based on patient's age to complete this topic Meningococcal Vaccine Aged Out No whitney sissy eligible based on patient's age to complete this topic RSV Immunizations Under 20 Months Aged Out No longer eligible b ased on patient's age to complete this topic Medical Devices Implanted Type Area Visual Merchandising Assistant Device Identifier Shelf Expiration Date Model / Serial / Lot Absorbable Radiopaque Perirectal Hydrogel Spacer Implanted:Qty: 1 on 08/09/2021 by Fred Cali MD at [facility] N/A: Perianal [id number] 12/17/2022 / / [id number] [place] [address] Care Teams Email Engineer Relationship Specialty Start Date End Date Len Singleton MD [address] [place] [address] [address] [place] [address] PCP - General FAMILY PRACTICE 08/04/21 [place] [address] [address] RADIATION ONCOLOGY 08/04/21
[2024-12-12 19:15] VITALS: BP 162/85; PULSE 55; RESP 18; TEMP 37.1; O2SAT 97
[2024-12-12] MEDS: TETRACAINE HCL 0.5% OPHTH SOLN 4 ML BTL 1 DROP EACH EYE (19:39)
[2024-12-12] MEDS: FLUORESCEIN SOD 1 MG/STRIP EACH EYE (19:39)
--- NOTE | 2024-12-12 20:20 | ED.EYEPROB ---
HPI - Eye Problem General Chief complaint: Eye Problems Stated complaint: splashed with rubbing alcohol in L eye Time Seen by Provider: 12/12/24 19:32 Source: patient Mode of arrival: ambulatory Limitations: no limitations History of Present Illness HPI Narrative: 59-year-old with a history of low from prostate cancer stage IV here with a complains of a accidental spill of rubbing alcohol into his left eye about 230 this afternoon. He patient states that he washed his eye several times. Now having redness and swelling. He is able to see through the eye. MD chief complaint: eye pain and eye redness Onset (ago): hour(s) (6) Onset description: sudden Duration: constant Eye Symptoms: burning and redness Place: home Mechanism: none Related Data Home Medications ?Medication ?Instructions ?Recorded ?Confirmed ?Last Taken ?Type ascorbic acid (vitamin C) 1,000 mg 1 gm PO DAILY 12/31/18 06/18/24 Unknown History tablet cyanocobalamin (vitamin B-12) 1,000 mcg PO DAILY 12/31/18 06/18/24 Unknown History 1,000 mcg tablet,extended release (Vitamin B-12 ER) fish oil-dha-epa 1,200 mg-144 1 cap PO DAILY 12/31/18 06/18/24 Unknown History mg-216 mg capsule apalutamide 60 mg tablet (Erleada) 240 mg PO DAILY 04/27/23 06/18/24 Unknown History denosumab 120 mg/1.7 mL (70 mg/mL) 120 mg subcut ONCE 04/27/23 06/18/24 Unknown History subcutaneous solution (Xgeva) fluticasone propionate 50 1 spray intranasal BID 04/27/23 06/18/24 Unknown History mcg/actuation nasal spray,suspension (Flonase Allergy Relief) leuprolide acetate (6 month) 45 mg 45 mg subcut [id number] 04/27/23 06/18/24 Unknown History (6 month) subcutaneous syringe (Eligard) Allergies Allergy/AdvReac Type Severity Reaction Status Date / Time No Known Allergies Allergy Verified 12/12/24 19:18 Review of Systems Review of Systems: All systems reviewed & are unremarkable except as noted in HPI and below Constitutional: Constitutional: Reports no additional constitutional complaints Eyes: Eyes: Reports as per HPI ENT: Reports system reviewed and no additional complaints, except as documented Cardiovascular: Cardiovascular: Reports no additional cardiovascular complaints Musculoskeletal: Musculoskeletal: Reports no additional musculoskeletal complaints Integumentary/Breasts: Skin/Breast: Reports system reviewed and no additional complaints, except as docu [facility] Past Medical History Medical History COVID-19 (~02/21/23) Obesity (BMI 30.0-34.9) Prostate cancer, primary, with metastasis from prostate to other site (~02/2021) No evidence of metastatic disease a nuclear bone scan and CT of the abdomen and pelvis on 08/16/2022. Negative Bone scan 09/06/23. Stable sclerotic lesion left sacrum on CT 09/06/2023. Plantar wart of right foot BMI 30.0-30.9,adult Elevated PSA, less than 10 ng/ml (06/02/20) PSA 7.6 on 06/02/2020, increased from 3.7 on 09/17/2018. PSA 9.3 with 10% free PSA on 09/07/2020 Polyp of colon Colonoscopy 08/25/2017 Abnormal fasting glucose Fasting glucose 108 with hemoglobin A1c 5.6 on 11/24/2023 with GFR 99. Fasting glucose 102, hemoglobin A1c 5.7, GFR 99 on 06/14/2024. Mixed hyperlipidemia Coronary artery calcium CT score 95.5 on 08/30/2024. Low risk. Total cholesterol 262, triglycerides 476, HDL 32 on 06/02/2020. cholesterol 270, triglycerides 327, HDL 36, LDL 179 with ratio 7.5 on 11/24/2023. cholesterol 207, triglycerides 305, HDL 31, LDL 153 on 06/14/2024. Encounter for prostate cancer screening Acute non-recurrent maxillary sinusitis Family History Family History Mother Diabetes mellitus Family history of arthritis Grandparent Depression Family history of suicide Family history of dementia Father Patient's father is Family history of malignant neoplasm Sibling Family history of allergic disorder Social History Social History Smoking packs per day: 2 Smoking cigarettes per day: 40.0 Years smoked: 25 Smoking pack-years: 50.00 Smoking status: Former smoker Alcohol intake: former Substance use: never Substance use type: does not use Current Housing: Decline to Answer Concerned About Future Housing: Decline to Answer Difficulty Paying Gas/Electric Bills: Decline to Answer Difficulty Paying for Meds: Decline to Answer Currently Unemployed: Decline to Answer Education: Decline to Answer Difficulty w/ Childcare or Family Care: Decline to Answer Spiritual care concerns: No Exam Narrative: GENERAL: Well-appearing, well-nourished, and in no acute distress. HEAD: Normocephalic, atraumatic. EYES: PERRLA and EOMI. ENT: Nares clear, no rhinorrhea or epistaxis. Mucous membranes moist. NECK: Supple. CHEST: Clear to auscultation. No respiratory distress. HEART: Regular rate and rhythm. No murmur heard. Normal peripheral pulses. EXTREMITIES: Normal range of motion. No edema. SKIN: Warm, dry, no rash. NEURO: No focal deficits. Alert and oriented x3. PSYCH: Normal mood and affect. Eyes: Eyes/upper lids images:  1. corneal burn 2. 3. Course Course Emergency Course: notified pt about the diagnosis , informed him to follow with Ophthalmology in 1 day Vital Signs Vital signs: Vital Signs Temperature 37.1 C 12/12/24 19:15 Pulse Rate 55 L 12/12/24 19:15 Respiratory Rate 18 12/12/24 19:15 Blood Pressure 162/85 H 12/12/24 19:15 Pulse Oximetry 97 12/12/24 19:15 Oxygen Delivery Room Air 12/12/24 19:15 Temperature 37.1 C 12/12/24 19:15 Pulse Rate 55 L 12/12/24 19:15 Respiratory Rate 18 12/12/24 19:15 Blood Pressure 162/85 H 12/12/24 19:15 Pulse Oximetry 97 12/12/24 19:15 Oxygen Delivery Room Air 12/12/24 19:15 Discharge Plan Discharge Clinical Impression: Chemical burn of left cornea Qualifiers: Encounter type: initial encounter Qualified Code(s): T26.62XA - Corrosion of cornea and conjunctival sac, left eye, initial encounter Patient Disposition: Home Condition: Stable Instructions: Chemical Eye [place] (ED) Patient Language: Maltese Prescriptions: New moxifloxacin 0.5 % drops 1 drp EACH EYE TID 7 Days Qty: 3 0RF No Action fluticasone propionate [Flonase Allergy Relief] 50 mcg/actuation spray,suspension 1 spray intranasal BID Rx Instructions: administer into each nostril Erleada 60 mg tablet 240 mg PO DAILY Patient Comments: prescribed by Oncology or urologist Anel (6 month) 45 mg syringe 45 mg subcut [id number] Xgeva 120 mg/1.7 mL (70 mg/mL) solution 120 mg subcut ONCE Patient Comments: oncology hydrocodone-acetaminophen 5-325 mg tablet 1 tablet PO Q6H PRN (Reason: pain) Qty: 14 0RF fish oil-dha-epa 1,200-144-216 mg capsule 1 cap PO DAILY ascorbic acid (vitamin C) 1,000 mg tablet 1 gm PO DAILY cyanocobalamin (vitamin B-12) [Vitamin B-12] 1,000 mcg tablet extended release 1,000 mcg PO DAILY quetiapine 25 mg tablet 25 mg PO QHS Qty: 90 3RF fluoxetine 20 mg capsule 60 mg PO DAILY Qty: 270 3RF Rx Instructions: 60 mg tablet not covered by insurance zolpidem 10 mg tablet 10 mg PO . Q.h.s. PRN (Reason: insomnia) Qty: 90 1RF Rx Instructions: [place] pay with good Rx diazepam 10 mg tablet 10 mg PO BID PRN (Reason: anxiety) Qty: 180 1RF Follow-up/Referrals: UNKNOWN,DOCTOR [Primary Care Provider] Afshan Bennett [Outside] Time of Disposition: 20:31
[2024-12-12] MEDS: MOXIFLOXACIN HCL 0.5% 3 ML OPHTH SOLN 1 DROP LEFT EYE (20:47)
--- OUTSIDE RECORDS SUMMARY | 2024-12-12 20:52 | XMS_ITS | Clinical Summary ---
Author Organization [facility] Address [address] [facility], [address] [address] Phone Care Team Providers Care Efficiency Manager Name Role Phone Len Singleton MD [...] to complete this topic Insurance Care Teams Efficiency Manager Relationship Specialty Start Date End Date Len Singleton MD [address] [address] PCP - General Family Medicine 01/31/17
--- OUTSIDE RECORDS SUMMARY | 2024-12-12 20:52 | XMS_ITS | Clinical Summary ---
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 Gender Identity Male 03/30/2021 9:02 AM CALCULATION CLERK Sexual Orientation Straight 03/30/2021 9: 02 AM CALCULATION CLERK Last Filed Vital Signs Vital Sign Reading [...] 60-74 years 1-dose series) 2023 PHQ-2 (Physician [place]) 02/21/2024 COVID-19 Vaccine (4 - 2024-2 6 [...] this topic Medical Devices Implanted Type Area Wire Twister Device Identifier Shelf Expiration Date Model / Serial / Lot Absorbable Radiopaque Perirectal Hydrogel Spacer Implanted:Qty: 1 on 08/09/2021 by Fred Cali MD at [facility] N/A: Perianal [id number] 12/17/2022 / / [id number] [place] [address] Care Teams Director Of Market Intelligence Relationship Specialty Start Date End Date Len Singleton MD [address] [place] [address] [address] [place] [address] PCP - General FAMILY PRACTICE 08/04/21 [place] [id number] [address] RADIATION ONCOLOGY 08/04/21
--- OUTSIDE RECORDS SUMMARY | 2024-12-12 20:52 | XMS_ITS | Data Portability ---
Author Organization [place] [facility] [employer], Main Office Address [address] [place] [address] Assessment Encounter Date Assessment Date Assessment LastModified by Organization Details LastModified Time 07/26/2022 07/26/2022 Assessment: Very severe OSAHS, AHI = 65 PLMD Iron deficiency Plan: The following were reviewed and explained to the patient: [facility] sleep studies 08/19/16, 12/09/16 Ferritin 09/07/20 67 ng/mL Ferritin 12/21/21 138 ng/mL Ferritin 07/14/22 119 mg% B12 09/07/20 1181 pg/mL (high) alpha-tocopherol 09/07/20 26.3 mg/L (high) Elevation in periodic limb movement index may be contributed by fluoxetine. Non-pharmacologic therapy options for periodic limb movement disorder include avoidance of aggravating drugs and substances, mental alerting activities, short daily hemodialysis for patients in renal failure, exercise, leg massage, and applied heat. Patient will cut down on alcohol consumption and caffeine intake. BUN, Creatinine, RBC folate, Iron, TIBC, ESR, Magnesium, Hgb and Hct levels are within normal limits. Patient has discontinued vitamin B12 supplements and adjusted to a lower vitamin E diet. Patient will continue FeSO4 325 mg + Vit C 500 mg once weekly to keep the ferritin > 75 ng/ml. Check ferritin one week before return. We will hold off on dopaminergic therapy for now. PAP compliance downloaded and interpreted x 20 minutes. Data reviewed and explained to the patient. Average apnea/hypopnea index (AHI) is 6.6. Patient used PAP > 4 hours 95% of the time. PAP is set at 10 cmH2O. PAP will be reset at 11 cmH2O. Oxygen supplementation: none Patient is benefiting from PAP therapy. Encouraged patient to maintain PAP use more than 70% of the time. Statement of PAP use and benefits will be sent to the home care store. Educated the patient on problems and solutions associated with positive airway pressure (PAP) use. Difficulty tolerating pressure, mask leaks, intolerance of interface, nasal congestion, claustrophobic response, dry mouth, and unintentional mask removal during sleep were covered. Patient experiences nasal congestion. Patient will use nasal saline spray before starting PAP, use heated PAP humidifier, clean/air dry humidifier reservoir daily, use nasal steroid spray, use ipratropium bromide nasal spray if rhinitis/rhinorrhe a is present or obtain an oronasal/oral interface. Dry mouth is a normal occurrence for people who just start out on PAP therapy because they are not used to air blowing in to the throat to hold open. Dry mouth is exacerbated for people who wear nasal PAP mask and whose jaw drops open during sleep. Not only does this create a much less efficient therapy because of leakage, it also causes dry mouth. There are a couple solutions to help prevent this type of problem. A simple solution would be to wear a chinstrap which essentially holds the jaw in place. A second solution would be a switch to a full face mask which covers both the nose and mouth. Although this is another easy solution, using a full face mask for some could seem claustrophobic or confining. There is no silver bullet solution as no single mask is right for everybody. Sometimes it takes a bit of experimentation to find a PAP mask which best meets the patient's needs as well as fits comfortably. Another tactic is to use a humidifier on your PAP machine. Most new PAP machines have integrated humidifiers. Humidification is fox when dealing with symptoms of dry mouth because the humidifier can supply both warm and room temperate air. Even a small amount of humidity in the airflow will help nasal passages to stay hydrated. If a person is using both a full face mask and a PAP machine with a heated humidifier and is still experiencing dry mouth, an ill-fitted PAP mask might be causing the problem. Leakage can be caused by a mask that is to large or small, the wrong style mask, the cushion is degraded or simply because the mask's straps aren't adjusted correctly. If leakage occurs, dry air from the room can leak in while humidification escapes. The result is reduced humidification within the circuit and resulting in dry throat and mouth. Finally, beyond factors involving the PAP machine and mask, dry mouth can also be caused or worsened by dehydration. The general recommendation to during eight 8 oz. glasses of water a day might be too little for many people. When people drink large amounts of coffee or other caffeine beverages, or sweat a lot during the day, making sure to rehydrate is an important part of PAP therapy. CPAP supplies c/o [employer]. A major predictor of success with use of PAP is follow-up with both the respiratory supplier and the treating physician. To help assess adherence, a downloadable card/chip is ordered with the PAP equipment. The card/chip will be downloaded by the respiratory supplier and sent to the treating physician. The download results can show the treating physician information about adherence to treatment, residual AHI while on treatment and presence of large mask leakage. This information is especially helpful if the patient has residual sleepiness despite treatment. General information on sleep disorder breathing, evaluation of sleep disordered breathing, treatment with PAP therapy, and living with PAP therapy were covered. We discussed with the patient the impact of weight on: Sleep disordered breathing BEV We discussed with the patient the benefit of PAP therapy on: Sleep disordered breathing Anxiety/Depression GERD Educated the patient on sleep hygiene measures. Relaxing rituals to rest easy, understanding foods with positive and negative impact on sleep, creating a peaceful sleep environment, timing of exercise, using herbal sleep aids, and practicing sleep-friendly meditation were covered. To determine how much sleep is needed, the patient will assess where (s)he falls on the spectrum, examine what lifestyle factors such as work schedules and stress are affecting the quality and quantity of sleep. In general, adults need 7-9 hours of sleep. Educated the patient regarding foods that promote sleep. These include but are not limited to cherries, bananas, toast, oatmeal, and warm milk. Educated the patient regarding foods and drinks to avoid before bedtime. These include but are not limited to aged cheese, chocolate, spicy foods, tomato-based sauces, soy, ginseng tea and processed meat. Advocated influenza vaccination annually and pneumonia vaccination in 2028. Advocated weight loss through diet and exercise. Patient's ideal body weight according to height and gender is up to 185 lbs. Encouraged patient to adjust caloric intake to maintain/achieve ideal body weight, emphasizing on fruits, vegetables, whole grains, and fat-free or low-fat products. These include lean meats, poultry, fish, beans, eggs, and nuts and foods that are low in saturated fats, trans-fats, cholesterol, salt (sodium), and glycemic index. Stressed the importance of regular exercise up to the patient's capacity limits. In this case, we recommend 20 min daily walking, 2 days a week of resistance training. Patient to monitor BP daily and bring records to PCP for further management. Follow-up: 9 months, April 2023 Not available 07/26/2022 12:59:30 04/26/2023 04/26/2023 Assessment: Very severe OSAHS, AHI = 65 PLMD Iron deficiency Plan: The following were reviewed and explained to the patient: [facility] sleep studies 08/19/16, 12/09/16 Ferritin 09/07/20 67 ng/mL Ferritin 12/21/21 138 ng/mL Ferritin 07/14/22 119 mg% Ferritin 04/18/23 127 ng/mL B12 09/07/20 1181 pg/mL (high) alpha-tocopherol 09/07/20 26.3 mg/L (high) Elevation in periodic limb movement index may be contributed by fluoxetine. Non-pharmacologic therapy options for periodic limb movement disorder include avoidance of aggravating drugs and substances, mental alerting activities, short daily hemodialysis for patients in renal failure, exercise, leg massage, and applied heat. Patient will cut down on alcohol consumption and caffeine intake. BUN, Creatinine, RBC folate, Iron, TIBC, ESR, Magnesium, Hgb and Hct levels are within normal limits. Patient has discontinued vitamin B12 supplements and adjusted to a lower vitamin E diet. Patient will continue FeSO4 325 mg + Vit C 500 mg once weekly to keep the ferritin > 75 ng/ml. Check ferritin one week before return. We will hold off on dopaminergic therapy for now. PAP compliance downloaded and interpreted x 20 minutes. Data reviewed and explained to the patient. Average apnea/hypopnea index (AHI) is 4.4. Patient used PAP > 4 hours 97% of the time. PAP is set at 11 cmH2O. PAP will remain at 11 cmH2O. Oxygen supplementation: none Patient is benefiting from PAP therapy. Encouraged patient to maintain PAP use more than 70% of the time. Statement of PAP use and benefits will be sent to the home care store. Educated the patient on problems and solutions associated with positive airway pressure (PAP) use. Difficulty tolerating pressure, mask leaks, intolerance of interface, nasal congestion, claustrophobic response, dry mouth, and unintentional mask removal during sleep were covered. Patient experiences nasal congestion. Patient will use nasal saline spray before starting PAP, use heated PAP humidifier, clean/air dry humidifier reservoir daily, use nasal steroid spray, use ipratropium bromide nasal spray if rhinitis/rhinorrhe a is present or obtain an oronasal/oral interface. Dry mouth is a normal occurrence for people who just start out on PAP therapy because they are not used to air blowing in to the throat to hold open. Dry mouth is exacerbated for people who wear nasal PAP mask and whose jaw drops open during sleep. Not only does this create a much less efficient therapy because of leakage, it also causes dry mouth. There are a couple solutions to help prevent this type of problem. A simple solution would be to wear a chinstrap which essentially holds the jaw in place. A second solution would be a switch to a full face mask which covers both the nose and mouth. Although this is another easy solution, using a full face mask for some could seem claustrophobic or confining. There is no silver bullet solution as no single mask is right for everybody. Sometimes it takes a bit of experimentation to find a PAP mask which best meets the patient's needs as well as fits comfortably. Another tactic is to use a humidifier on your PAP machine. Most new PAP machines have integrated humidifiers. Humidification is fox when dealing with symptoms of dry mouth because the humidifier can supply both warm and room temperate air. Even a small amount of humidity in the airflow will help nasal passages to stay hydrated. If a person is using both a full face mask and a PAP machine with a heated humidifier and is still experiencing dry mouth, an ill-fitted PAP mask might be causing the problem. Leakage can be caused by a mask that is to large or small, the wrong style mask, the cushion is degraded or simply because the mask's straps aren't adjusted correctly. If leakage occurs, dry air from the room can leak in while humidification escapes. The result is reduced humidification within the circuit and resulting in dry throat and mouth. Finally, beyond factors involving the PAP machine and mask, dry mouth can also be caused or worsened by dehydration. The general recommendation to during eight 8 oz. glasses of water a day might be too little for many people. When people drink large amounts of coffee or other caffeine beverages, or sweat a lot during the day, making sure to rehydrate is an important part of PAP therapy. CPAP supplies c/o [employer]. A major predictor of success with use of PAP is follow-up with both the respiratory supplier and the treating physician. To help assess adherence, a downloadable card/chip is ordered with the PAP equipment. The card/chip will be downloaded by the respiratory supplier and sent to the treating physician. The download results can show the treating physician information about adherence to treatment, residual AHI while on treatment and presence of large mask leakage. This information is especially helpful if the patient has residual sleepiness despite treatment. General information on sleep disorder breathing, evaluation of sleep disordered breathing, treatment with PAP therapy, and living with PAP therapy were covered. We discussed with the patient the impact of weight on: Sleep disordered breathing BEV We discussed with the patient the benefit of PAP therapy on: Sleep disordered breathing Anxiety/Depression GERD Educated the patient on sleep hygiene measures. Relaxing rituals to rest easy, understanding foods with positive and negative impact on sleep, creating a peaceful sleep environment, timing of exercise, using herbal sleep aids, and practicing sleep-friendly meditation were covered. To determine how much sleep is needed, the patient will assess where (s)he falls on the spectrum, examine what lifestyle factors such as work schedules and stress are affecting the quality and quantity of sleep. In general, adults need 7-9 hours of sleep. Educated the patient regarding foods that promote sleep. These include but are not limited to cherries, bananas, toast, oatmeal, and warm milk. Educated the patient regarding foods and drinks to avoid before bedtime. These include but are not limited to aged cheese, chocolate, spicy foods, tomato-based sauces, soy, ginseng tea and processed meat. Advocated influenza vaccination annually and pneumonia vaccination in 2028. Advocated weight loss through diet and exercise. Patient's ideal body weight according to height and gender is up to 185 lbs. Encouraged patient to adjust caloric intake to maintain/achieve ideal body weight, emphasizing on fruits, vegetables, whole grains, and fat-free or low-fat products. These include lean meats, poultry, fish, beans, eggs, and nuts and foods that are low in saturated fats, trans-fats, cholesterol, salt (sodium), and glycemic index. Stressed the importance of regular exercise up to the patient's capacity limits. In this case, we recommend 20 min daily walking, 2 days a week of resistance training. Patient to monitor BP daily and bring records to PCP for further management. Follow-up: 1 year, April 2024 Not available 04/26/2023 12:14:16 05/01/2024 05/01/2024 Assessment: Very severe OSAHS, AHI = 65 PLMD Iron deficiency Plan: The following were reviewed and explained to the patient: [facility] sleep studies 08/19/16, 12/09/16 Ferritin 09/07/20 67 ng/mL Ferritin 12/21/21 138 ng/mL Ferritin 07/14/22 119 mg% Ferritin 04/18/23 127 ng/mL Ferritin 04/25/24 223 ng/mL B12 09/07/20 1181 pg/mL (high) alpha-tocopherol 09/07/20 26.3 mg/L (high) Elevation in periodic limb movement index may be contributed by fluoxetine. Non-pharmacologic therapy options for periodic limb movement disorder include avoidance of aggravating drugs and substances, mental alerting activities, short daily hemodialysis for patients in renal failure, exercise, leg massage, and applied heat. Patient will cut down on alcohol consumption and caffeine intake. BUN, Creatinine, RBC folate, Iron, TIBC, ESR, Magnesium, Hgb and Hct levels are within normal limits. Patient has discontinued vitamin B12 supplements and adjusted to a lower vitamin E diet. Patient will continue FeSO4 325 mg + Vit C 500 mg once weekly to keep the ferritin > 75 ng/ml. Check ferritin one week before return. We will hold off on dopaminergic therapy for now. PAP compliance downloaded and interpreted x 20 minutes. Data reviewed and explained to the patient. Average apnea/hypopnea index (AHI) is 4.6. Patient used PAP > 4 hours 99% of the time. PAP is set at 11 cmH2O. PAP will remain at 11 cmH2O. Oxygen supplementation: none Keep ramp off. 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 Keep humidifier level at 3. Keep tube temperature at 66 F. Patient is benefiting from PAP therapy. Encouraged patient to maintain PAP use more than 70% of the time. Statement of PAP use and benefits will be sent to the home care store. Educated the patient on problems and solutions associated with positive airway pressure (PAP) use. Difficulty tolerating pressure, mask leaks, intolerance of interface, nasal congestion, claustrophobic response, dry mouth, and unintentional mask removal during sleep were covered. Patient experiences nasal congestion. Patient will use nasal saline spray before starting PAP, use heated PAP humidifier, clean/air dry humidifier reservoir daily, use nasal steroid spray, use ipratropium bromide nasal spray if rhinitis/rhinorrhe a is present or obtain an oronasal/oral interface. Dry mouth is a normal occurrence for people who just start out on PAP therapy because they are not used to air blowing in to the throat to hold open. Dry mouth is exacerbated for people who wear nasal PAP mask and whose jaw drops open during sleep. Not only does this create a much less efficient therapy because of leakage, it also causes dry mouth. There are a couple solutions to help prevent this type of problem. A simple solution would be to wear a chinstrap which essentially holds the jaw in place. A second solution would be a switch to a full face mask which covers both the nose and mouth. Although this is another easy solution, using a full face mask for some could seem claustrophobic or confining. There is no silver bullet solution as no single mask is right for everybody. Sometimes it takes a bit of experimentation to find a PAP mask which best meets the patient's needs as well as fits comfortably. Another tactic is to use a humidifier on your PAP machine. Most new PAP machines have integrated humidifiers. Humidification is fox when dealing with symptoms of dry mouth because the humidifier can supply both warm and room temperate air. Even a small amount of humidity in the airflow will help nasal passages to stay hydrated. If a person is using both a full face mask and a PAP machine with a heated humidifier and is still experiencing dry mouth, an ill-fitted PAP mask might be causing the problem. Leakage can be caused by a mask that is to large or small, the wrong style mask, the cushion is degraded or simply because the mask's straps aren't adjusted correctly. If leakage occurs, dry air from the room can leak in while humidification escapes. The result is reduced humidification within the circuit and resulting in dry throat and mouth. Finally, beyond factors involving the PAP machine and mask, dry mouth can also be caused or worsened by dehydration. The general recommendation to during eight 8 oz. glasses of water a day might be too little for many people. When people drink large amounts of coffee or other caffeine beverages, or sweat a lot during the day, making sure to rehydrate is an important part of PAP therapy. CPAP supplies c/o [employer]. A major predictor of success with use of PAP is follow-up with both the respiratory supplier and the treating physician. To help assess adherence, a downloadable card/chip is ordered with the PAP equipment. The card/chip will be downloaded by the respiratory supplier and sent to the treating physician. The download results can show the treating physician information about adherence to treatment, residual AHI while on treatment and presence of large mask leakage. This information is especially helpful if the patient has residual sleepiness despite treatment. General information on sleep disorder breathing, evaluation of sleep disordered breathing, treatment with PAP therapy, and living with PAP therapy were covered. We discussed with the patient the impact of weight on: Sleep disordered breathing BEV We discussed with the patient the benefit of PAP therapy on: Sleep disordered breathing Anxiety/Depression GERD Educated the patient on sleep hygiene measures. Relaxing rituals to rest easy, understanding foods with positive and negative impact on sleep, creating a peaceful sleep environment, timing of exercise, using herbal sleep aids, and practicing sleep-friendly meditation were covered. To determine how much sleep is needed, the patient will assess where (s)he falls on the spectrum, examine what lifestyle factors such as work schedules and stress are affecting the quality and quantity of sleep. In general, adults need 7-9 hours of sleep. Educated the patient regarding foods that promote sleep. These include but are not limited to cherries, bananas, toast, oatmeal, and warm milk. Educated the patient regarding foods and drinks to avoid before bedtime. These include but are not limited to aged cheese, chocolate, spicy foods, tomato-based sauces, soy, ginseng tea and processed meat. Advocated influenza vaccination annually and pneumonia vaccination in 2028. Advocated weight loss through diet and exercise. Patient's ideal body weight according to height and gender is up to 185 lbs. Encouraged patient to adjust caloric intake to maintain/achieve ideal body weight, emphasizing on fruits, vegetables, whole grains, and fat-free or low-fat products. These include lean meats, poultry, fish, beans, eggs, and nuts and foods that are low in saturated fats, trans-fats, cholesterol, salt (sodium), and glycemic index. Stressed the importance of regular exercise up to the patient's capacity limits. In this case, we recommend 20 min daily walking, 2 days a week of resistance training. Patient to monitor BP daily and bring records to PCP for further management. Follow-up: 1 year, April 2025 [facility] Not available 05/01/2024 11:17:38 Plan of Treatment Reminders Order Date Submit Date Provider Last Modified By Organization Details Last Modified Time Details Appointments Any 30 2025 10:00A Callum Aquino MD Not available Not available Not available Lab ferritin , serum or plasma 2024 026 [email or web address], [address] [facility] [address], [place], [address], 05/01/2024 11:17:46 ferritin , serum or plasma 2023 025 [facility], [address] [facility] [address], [place], [address], 04/23/2024 11:49:42 ferritin , serum or plasma 2022 024 [email or web address] [facility], [address], [place], [address], 03/30/2023 16:35:10 Referral None recorded . Procedures None recorded . Surgeries None recorded . Imaging None recorded . Medication Orders ferrous sulfate 325 mg (65 mg iron) tablet 2024 025 [facility]armacy #[id number], [address], [place], [address], 05/01/2024 11:17:49 Vitamin C 500 mg tablet 2024 025 [facility]/Pharmacy #[id number], [address], [place], [address], 05/01/2024 11:17:49 ferrous sulfate 325 mg (65 mg iron) tablet 2023 024 [facility]/Pharmacy #[id number], [address], [place], [address], 04/26/2023 12:21:58 Vitamin C 500 mg tablet 2023 024 [id number], [address], [place], [address], 04/26/2023 12:21:58 ferrous sulfate 325 mg (65 mg iron) tablet 2022 023 [id number], [address], [place], [address], 07/26/2022 12:45:52 Vitamin C 500 mg tablet 2022 023 [id number], [address], [place], [address], 07/26/2022 12:45:52 Patient TargetsNo targets recorded. Patient InstructionsNo instructions recorded. Reason for Referral None Reported. Results Created Date Observation Date Name Description Value Unit Range Abnormal Flag Note LastModifiedBy Organization Detail LastModifiedTime 12/22/19 22 12/22/2021 CARL TIN ferritin 138 NG/mL 38-[address] to have a dupli tenzin copy faxed has been sadie krueger ed. Queue d to: [id number] Not Available [employer] [address] [place], [address], 12/22/2021 03:03:43 12/22/19 22 12/22/2021 CARL TIN copy(ies) sent to: [facility] [address] [place] [address] Not Available [employer] [facility] [address] [place], [address], 12/22/2021 03:03:43 07/15/19 23 07/15/2022 CARL TIN ferritin 119 NG/mL 38-[address] to have a dupli tenzin copy faxed has been kesh[place] cheri ed. [place] to: [phone] Not Available [facility] [address] [address], [place], [address], 07/15/2022 12:59:03 04/18/19 24 04/19/2023 CARL TIN ferritin 127 NG/mL 24-380 normal Not Available [facility] [address] [place], [address], 04/19/2023 08:03:33 04/26/19 25 04/26/2024 CARL TIN ferritin 223 NG/mL 30-400 normal Not Available [facility] ([facility]) [address] [facility], [place], [address], 04/26/2024 08:38:08 Result Notes None recorded. Problems Name Problem SNOMED Code Status Onset Date Resolution Date Notes Provider Name and Address Organization Details Recorded Time Body mass index 30+ - obesity 464810590 Active 2018 Not Available [facility] 3 13:12:08 Iron deficiency 14447130 Active 2021 Not Available [facility] 3 13:12:08 Obstructive sleep apnea syndrome 32011069 Active 2022 Roberto Aquino MD [address] [place] [address], [phone] , [facility] 3 12:41:50 Notes:Medical History: Anxie ty/Depression Bilateral tinnitus Rhinitis with postnasal drip Bruxism Obesity with very severe OSAHS, AHI = 65, 12/09/16 on CPAP c/o Provider Plus BEV Metastatic prostate ca s/p radiation, on Erleada Iron deficiency PLMD Surgical History: T&A 1970 Problem Notes None recorded. Medical Equipment None Reported. Allergies No known drug allergies Medications Name Sig Start Date Stop Date Status Note LastModified by Organization Details LastModified Time quetiapine 25 mg tablet TAKE 1 TABLET BY MOUTH EVERYDAY AT BEDTIME active Not Available Not Available No t Available fluoxetine 40 mg capsule TAKE 1 CAPSULE BY MOUTH EVERY DAY active Not Available Not Available No t Available Vitamin C 500 mg tablet Take 1 tablet every week by oral route. 2024 active Not Available Not Available Not Avai lable hydrocodone 5 mg-acetamin ophen 325 mg tablet TAKE 1 TABLET BY MOUTH EVERY 6 HOURS NEEDED FOR PAIN active Not Available Not Available No t Available diphenoxyla te-atropine 2.5 mg-0.025 mg tablet TAKE 2 TABS BY MOUTH AFTER 1ST LOOSE STOOL, THEN 1 TAB AFTER EACH SUBSEQUEN T. MAX OF 8 TABS/24 HOURS 04/20 completed Not Available Not Available Not Available tamsulosin 0.4 mg capsule TAKE 1 CAPSULE BY MOUTH DAILY AT BEDTIME. MAY THEN INCREASE TO 2 CAPS AFTER 2-4 WEEKS IF NEEDED active Not Available Not Available No t Available bisacodyl 10 mg rectal suppository USE DIRECTED 07/22 completed Not Available Not Available Not Available ferrous sulfate 325 mg (65 mg iron) tablet TAKE 1 TABLET BY MOUTH EVERY WEEK active Not Available Not Available No t Available fluoxetine 20 mg tablet 04/20 completed Not Available Not Available Not Available ranitidine 150 mg tablet Take 1 tablet twice a day by oral route. 07/26 completed Not Available Not Available Not Available diazepam 10 mg tablet TAKE 1 TABLET BY MOUTH TWICE A DAY NEEDED FOR ANXIETY active Not Available Not Available No t Available zolpidem 10 mg tablet TAKE 1 TABLET BY MOUTH ONCE DAILY AT BEDTIME NEEDED active Not Available Not Available No t Available cefdinir 300 mg capsule TAKE 1 CAPSULE BY MOUTH EVERY 12 HOURS 04/25 completed Not Available Not Available Not Available fluoxetine 20 mg capsule TAKE 3 CAPSULES BY MOUTH EVERY DAY active Not Available Not Available No t Available naproxen 500 mg tablet TK 1 T PO BID 07/27 completed Not Available Not Available Not Available diazepam 5 mg tablet Take 1 tablet twice a day by oral route. 07/22 completed Not Available Not Available Not Available Vitamin C 10/27 completed Not Available Not Available Not Available calcium 04/20 completed Not Available Not Available Not Available fluoxetine 03/14 completed Not Available Not Available Not Available Fish Oil 07/12 completed Not Available Not Available Not Available flaxseed oil 07/12 completed Not Available Not Available Not Available diazepam 02/15 completed Not Available Not Available Not Available Vitamin D3 10/27 completed Not Available Not Available Not Available multivitami n 07/12 completed Not Available Not Available Not Available acai mcdowell extract 500 mg capsule Take by oral route. 07/12 completed Not Available Not Available Not Available GaviLyte-N 420 gram oral solution USE DIRECTED 07/22 completed Not Available Not Available Not Available zolpidem [address] 1 tablet every day by sublingua l route. 03/14 completed Not Available Not Available Not Available fluoxetine 60 mg tablet TAKE 1 TABLET BY MOUTH EVERY DAY active Not Available Not Available No t Available pomegranate fruit extract 250 mg capsule Take by oral route. 07/12 completed Not Available Not Available Not Available Flonase Allergy Relief 04/20 completed Not Available Not Available Not Available Erleada 60 mg tablet Take 4 tablets every day by oral route. active Not Available Not Available No t Available Vitals Date Recorded Body height Body mass index (BMI) Body weight Body temperature Heart rate Oxygen saturation Oxygen saturation in Arterial blood by Pulse oximetry Systolic And Diastolic Provider Name and Address Organization Details Last Updated DateTime 4 180.34 cm 30.3 kg/m2 79115.5 4 g 98.1 [degF] 58 /min 96 % 96 % 124/82 mm[Hg] Kell Roberts MA [facility] 4 12:08:19 Date Recorded Heart rate Body mass index (BMI) Body height Heart rate Respiratory rate Provider Name and Address Organization Details Last Updated DateTime 05/01/2024 59 /min 30.7 kg/m2 179.07 cm 59 /min 14 /min Roberto Aquino MD [address] [facility] [address], [place], [address] , [facility] 5 11:21:39 Date Recorded Body weight Oxygen saturation Oxygen saturation in Arterial blood by Pulse oximetry Body temperature Systolic And Diastolic Provider Name and Address Organization Details Last Updated DateTime 5 57175.5 4 g 97 % 97 % 98.1 [degF] 116/74 mm[Hg] Kell Roberts MA [facility] 5 10:55:03 Date Recorded Heart rate Respiratory rate Provider Jos rosie and Address Organization Details Last Updated DateTime 07/26/2022 60 /min 15 /min Roberto Aquino MD [address] [facility], [facility] [address], [place], [address], [facility] 07/26/2022 13:00:51 Date Recorded Body height Body mass index (BMI) Body weight Body temperature Heart rate Oxygen saturation Oxygen saturation in Arterial blood by Pulse oximetry Systolic And Diastolic Provider Name and Address Organization Details Last Updated DateTime 3 180.34 cm 29.9 kg/m2 78591.4 9 g 97.9 [degF] 60 /min 97 % 97 % 124/82 mm[Hg] Kell Roberts MA [facility] 3 12:20:13 Date Recorded Body mass index (BMI) Heart rate Body height Oxygen saturation Oxygen saturation in Arterial blood by Pulse oximetry Heart rate Respiratory rate Body temperature Body weight Systolic And Diastolic Provider Name and Address Organization Details Last Updated DateTime 2 27.6 kg/m2 67 /min 180.34 cm 97 % 97 % 67 /min 15 /min 98.4 [degF] 01587.2 9 g 118/78 mm[Hg] Not Available [facility] 3 13:11:57 Date Recorded Body mass index (BMI) Body height Oxygen saturation Oxygen saturation in Arterial blood by Pulse oximetry Heart rate Body temperature Body weight Systolic And Diastolic Provider Name and Address Organization Details Last Updated DateTime 2 29.3 kg/m2 180.34 cm 97 % 97 % 65 /min 98.5 [degF] 34809.1 2 g 120/78 mm[Hg] Not Available [facility] 3 13:11:57 Social History Question Answer Notes LastModified by Organizat ion Details LastModified Time Tobacco Smoking Status Former Smoker Not Available [facility] 04/20/2022 13:11:21 What Is Your Level Of Caffeine Consumption? Occasional [id number] Information not available 04/20/2022 In The 14 Days Before Symptom Onset, Have You Had Close Contact With A Laboratory-confir med COVID-19 While That Case Was Ill? No [id number] Information not available 04/20/2022 In The 14 Days Before Symptom Onset, Have You Had Close Contact With A Person Who Is Under Investigation For COVID-19 While That Person Was Ill? No [id number] Information not available 04/20/2022 What Type Of Diet Are You Following? REGULAR [id number] Information not available 04/20/2022 Which Illicit Or Recreational Drugs Have You Used? Cannibus [id number] Information not available 04/20/2022 Do You Have An Electrostatic Air Filter? No [id number] Information not available 04/20/2022 Do You Have A Humidifier? No [id number] Information not available 04/20/2022 Do You Have Moisture Problems In Your Home? No [id number] Information not available 04/20/2022 What Was The Date Of Your Most Recent Tobacco Screening? 05/01/2024 Information not available 05/01/2024 Do You Have Any Pets? No [id number] Information not available 04/20/2022 Do You Use Your Seat Belt Or Car Seat Routinely? Yes Information not available 07/26/2022 Do You Have Smoke And Carbon Monoxide Detectors In Your Home? Yes [id number] Information not available 04/20/2022 Are You Passively Exposed To Smoke? No [id number] Information not available 04/20/2022 Do You Use Sunscreen Routinely? No Information not available 07/26/2022 Have You Recently Traveled Abroad? No [id number] Information not available 04/20/2022 Sex: Unknown Functional Status Question Answer Note LastModified by Organizat ion Details LastModified Time Do you use any illicit or recreational drugs? Yes [id number] Information not available 04/20/2022 Do you or have you ever used any other forms of tobacco or nicotine? No [id number] Information not available 04/20/2022 What is your level of alcohol consumption? None [id number] Information not available 04/20/2022 Are you currently employed? Yes Information not available 07/26/2022 Have you been exposed to chemicals or toxins? 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 Family History Nothing Reported. Medical History No medical history recorded. Past Encounters Encounter ID Performer Location Encounter Start Date Encounter Closed Date Diagnosis/Indication Diagnosis SNOMED-CT Code Diagnosis ICD10 Code Diagnosis IMO Codes Diagnosis Note [id number] [facility] [address] 07/27/2020 00:00:00 07/27/2020 16:44:26 [id number] MD KJ LambREGINO [address] [address] 10/12/2021 00:00:00 10/12/2021 10:34:21 [id number] [facility] [address] [address] 01/18/2022 00:00:00 01/18/2022 14:32:52 [id number] MD KJ LambREGINO [address] [address] 07/26/2022 11:57:05 07/27/2022 08:32:18 Obstructive sleep apnea syndrome 34041036 G47.33 Iron deficiency 16656340 E61.1 [id number] MD [facility] [address] [address] 04/26/2023 11:56:11 04/27/2023 12:08:20 Obstructive sleep apnea syndrome 32173761 G47.33 Iron deficiency 11564423 E61.1 [id number] Roberto Aquino MD [facility] [address] [address] 05/01/2024 10:35:47 05/06/2024 16:06:58 Obstructive sleep apnea syndrome 78562580 G47.33 Iron deficiency 34109222 E61.1 Health Concerns Section Related Observation LastModified by Organization Detai ls LastModified Time None Recorded Concern Status LastModified by Organization Details LastModified Time None Recorded Advance Directives Directive None Recorded Payers Insurance Date Sequence Insurance Name Policy Number Policy Yousif Covered Member ID Yousif Member ID Guarantor Name 05/01/2024 1 [place] [id number] 2 Shin Garcia [id number] Shin Garcia 05/01/2024 1 [facility] Shin Garcia [id number] Shin Garcia Notes Date Note Type Note Provider Name and Address Organization Details Recorded Time 07/26/2022 text/html Primary care/Referring provider: Len Singleton, MDPatient has PLMD and is here to go over his ferritin levels.At home since 12/06/21, the patient uses a new ResMed AirSense 11 autoset unit with heated humidification. He does not need the ramp to start low and go up slowly on the pressure anymore. There is no xerostomia in a.m. There is no hose/mask condensation with water.Patient wears ResMed nasal pillows without chin strap. There is no claustrophobia, no nostril/nose bridge irritation, no facial rash, no facial numbness, no nosebleeding.Patient feels more refreshed upon waking and daytime alertness is improved. Energy levels are sustained for the remainder of the day.Patient sleeps from 10 pm to 7 am and wakes up with an alarm.Snoring: heavy, since 1970s.Snorting: yesChoking: noCoughing: noGasping: noGagging: noSighing: noWitnessed apnea: yesTwitching or jerking of leg(s), arm(s), body, head: noTeeth grinding: yesTeeth clenching: yesSleeptalking: yesSleepwalking: noSleep crying: noBedwetting: noTongue/lip/gum/cheek biting: noSleeping with open mouth: yesSleep paralysis: noHypnagogic hallucinations: noHypnopompic hallucinations: noVivid dreams: noDifficulty with sleep onset: yesDifficulty with sleep maintenance: yesSleep interruptions: nocturiaPatient wakes up with: fatigueDaytime cataplexy: noMorning hypersomnolence: noAfternoon hypersomnolence: yesCaffeine sources in diet: coffee 1 cup per day, tea 2 cups per day, chocolate 1/4 cup per dayAssociated medical and psychiatric conditions:Congestive heart failure: noCoronary artery disease: noMyocardial infarction: noHypertension: noStroke: noBronchial asthma: noChronic obstructive pulmonary disease: noDepression: yesBipolar disorder: noAnxiety: yesPanic disorder: noPosttraumatic stress disorder: noAttention deficit and hyperactivity disorder: noObsessive Compulsive disorder: noSchizophrenia: noSchizoaffective disorder: noPersonality disorder: noChronic analgesic use: noChronic sedative/hypnotic use: noSITUATION AND CHANCE OF DOZINGSitting and reading - 0Watching television - 0Sitting inactive in a public place (e.g. a theater or meeting) - 0As a passenger in a car for an hour without a break - 0Lying down to rest in the afternoon when circumstances permit - 0Sitting and talking to someone - 0Sitting quietly after lunch without alcohol - 0In a car, while stopped for a few minutes in the traffic - 0TOTAL SCORE 0Subjectively, patient has no chance of dozing. Roberto Aquino MD [address] [place] [address], [phone], [place] [facility] 07/26/2022 13:02:42 04/26/2023 text/html Primary care/Referring provider: Len Singleton [facility]MD and is on iron supplements.At home since 07/26/22, the patient uses a new ResMed AirSense 11 autoset unit with heated humidification. He does not need the ramp to start low and go up slowly on the pressure anymore. There is no xerostomia in a.m. There is no hose/mask condensation with water.Patient wears ResMed nasal pillows without chin strap. There is no claustrophobia, no nostril/nose bridge irritation, no facial rash, no facial numbness, no nosebleeding.Patient feels more refreshed upon waking and daytime alertness is improved. Energy levels are sustained for the remainder of the day.Patient sleeps from 10 pm to 7 am and wakes up with an alarm.Snoring: heavy, since 1970s.Snorting: yesChoking: noCoughing: noGasping: noGagging: noSighing: noWitnessed apnea: yesTwitching or jerking of leg(s), arm(s), body, head: noTeeth grinding: yesTeeth clenching: yesSleeptalking: yesSleepwalking: noSleep crying: noBedwetting: noTongue/lip/gum/cheek biting: noSleeping with open mouth: yesSleep paralysis: noHypnagogic hallucinations: noHypnopompic hallucinations: noVivid dreams: noDifficulty with sleep onset: yesDifficulty with sleep maintenance: yesSleep interruptions: nocturiaPatient wakes up with: fatigueDaytime cataplexy: noMorning hypersomnolence: noAfternoon hypersomnolence: yesCaffeine sources in diet: coffee 1 cup per day, tea 2 cups per day, chocolate 1/4 cup per dayAssociated medical and psychiatric conditions:Congestive heart failure: noCoronary artery disease: noMyocardial infarction: noHypertension: noStroke: noBronchial asthma: noChronic obstructive pulmonary disease: noDepression: yesBipolar disorder: noAnxiety: yesPanic disorder: noPosttraumatic stress disorder: noAttention deficit and hyperactivity disorder: noObsessive Compulsive disorder: noSchizophrenia: noSchizoaffective disorder: noPersonality disorder: noChronic analgesic use: noChronic sedative/hypnotic use: noSITUATION AND CHANCE OF DOZING Sitting and reading - 0Watching television - 0Sitting inactive in a public place (e.g. a theater or meeting) - 0As a passenger in a car for an hour without a break - 0Lying down to rest in the afternoon when circumstances permit - 0Sitting and talking to someone - 0Sitting quietly after lunch without alcohol - 0In a car, while stopped for a few minutes in the traffic - 0TOTAL SCORE 0Subjectively, patient has no chance of dozing. Roberto Aquino MD [address] [facility], [facility] [address], [place], [address], [place] [facility] 04/26/2023 12:52:12 05/01/2024 text/html Primary care/Referring provider: Len Singleton, MDPatient has PLMD and is on iron supplements.At home since 04/26/23, the patient uses a new ResMed AirSense 11 autoset unit with heated humidification. He does not need the ramp to start low and go up slowly on the pressure anymore. There is no xerostomia in a.m. There is no hose/mask condensation with water.Patient wears ResMed nasal pillows without chin strap. There is no claustrophobia, no nostril/nose bridge irritation, no facial rash, no facial numbness, no nosebleeding.Patient feels more refreshed upon waking and daytime alertness is improved. Energy levels are sustained for the remainder of the day.Patient sleeps from 10 pm to 7 am and wakes up with an alarm.Snoring: heavy, since 1970s.Snorting: yesChoking: noCoughing: noGasping: noGagging: noSighing: noWitnessed apnea: yesTwitching or jerking of leg(s), arm(s), body, head: noTeeth grinding: yesTeeth clenching: yesSleeptalking: yesSleepwalking: noSleep crying: noBedwetting: noTongue/lip/gum/cheek biting: noSleeping with open mouth: yesSleep paralysis: noHypnagogic hallucinations: noHypnopompic hallucinations: noVivid dreams: noDifficulty with sleep onset: yesDifficulty with sleep maintenance: yesSleep interruptions: nocturiaPatient wakes up with: fatigueDaytime cataplexy: noMorning hypersomnolence: noAfternoon hypersomnolence: yesCaffeine sources in diet: coffee 1 cup per day, tea 2 cups per day, chocolate 1/4 cup per dayAssociated medical and psychiatric conditions:Congestive heart failure: noCoronary artery disease: noMyocardial infarction: noHypertension: noStroke: noBronchial asthma: noChronic obstructive pulmonary disease: noDepression: yesBipolar disorder: noAnxiety: yesPanic disorder: noPosttraumatic stress disorder: noAttention deficit and hyperactivity disorder: noObsessive Compulsive disorder: noSchizophrenia: noSchizoaffective disorder: noPersonality disorder: noChronic analgesic use: noChronic sedative/hypnotic use: noSITUATION AND CHANCE OF DOZINGSitting and reading - 0Watching television - 0Sitting inactive in a public place (e.g. a theater or meeting) - 0As a passenger in a car for an hour without a break - 0Lying down to rest in the afternoon when circumstances permit - 0Sitting and talking to someone - 0Sitting quietly after lunch without alcohol - 0In a car, while stopped for a few minutes in the traffic - 0TOTAL SCORE 0Subjectively, patient has no chance of dozing. Roberto Aquino MD [address] [place] [address], [phone], [facility] 05/01/2024 11:24:17
[2024-12-12 20:55] VITALS: BP 148/73; PULSE 62; RESP 18; O2SAT 99
== END 2024-12-12 20:56 | disposition home or self-care (01) ==
LOC: ANHED 20:49
PROVIDERS: Emergency Provider Family Medicine
DX: T51.2X1A Toxic effect of 2-Propanol, accidental (unintentional), initial encounter (principal); T26.62XA Corrosion of cornea and conjunctival sac, left eye, initial encounter; C61 Malignant neoplasm of prostate; E78.2 Mixed hyperlipidemia; Z87.891 Personal history of nicotine dependence
CPT/HCPCS: 99283; A9270